=== PATIENT | male | born 2000 | race Two or more races ===

== ENCOUNTER 2023-09-15 00:06 | Emergency (ER) | payer MEDICAID ==
[~2023-09-15] VITALS: Ht 167.6 cm; Wt 113.6 kg
[2023-09-15 00:11] VITALS: TEMP 98.1
[2023-09-15] MEDS: ONDANSETRON HCL 4 MG/2 ML VIAL IVP ONE ×2 (00:43→01:56)
[2023-09-15] MEDS: KETOROLAC TROMETHAMINE 30 MG/ML VIAL IVP ONE (00:43)
[2023-09-15 00:54] LABS: BASOPHILS % (AUTO) 0.3 % (0.0-2.0); EOSINOPHILS % (AUTO) 0.5 % (1.0-6.0); HEMATOCRIT 42.6 % (41-53); HEMOGLOBIN 13.8 g/dL (13.5-17.5); LYMPHOCYTES # (AUTO) 1.1 K/uL (1.0-4.8); LYMPHOCYTES % (AUTO) 7.3 % (22.0-44.0); MEAN CORPUSCULAR HEMOGLOBIN 28.1 pg (26.0-34.0); MEAN CORPUSCULAR HGB CONC 32.4 G/dL (31.0-37.0); MEAN CORPUSCULAR VOLUME 87 fL (80-100); MONOCYTES # (AUTO) 0.5 K/uL (0.1-1.0); MONOCYTES % (AUTO) 3.1 % (2.0-9.0); NEUTROPHILS # (AUTO) 13.3 K/uL (1.8-7.7); PLATELET COUNT (AUTO) 335 K/uL (150-450); RED BLOOD CELL COUNT(AUTO) 4.92 MIL/uL (4.50-5.90)
[2023-09-15 00:55] LABS: NEUTROPHILS % (AUTO) 88.8 % (40.0-70.0)
[2023-09-15 01:04] LABS: ANION GAP 6 mmol/L (8-16); CALCIUM, TOTAL 8.9 mg/dL (8.8-10.5); CARBON DIOXIDE 28 mmol/L (22-29); CHLORIDE 104 mmol/L (98-107); CREATININE 1.18 mg/dL (0.60-1.30); GLOMERULAR FILTR. RATE CALC > 60 mL/min (>60); GLUCOSE,RANDOM 123 mg/dL (70-110); POTASSIUM 3.6 mmol/L (3.5-5.1); SODIUM SERUM 138 mmol/L (136-145); UREA NITROGEN, BLOOD 10 mg/dL (7-18)
[2023-09-15] MEDS: HYDROmorphone HCL 2 MG/ML SYRINGE IVP ONE (01:55)
[2023-09-15] MEDS: SODIUM CHLORIDE 0.9% 1,000 ML IV ONE (01:56)
[2023-09-15 02:01] LABS: APPEARANCE,URINE CLEAR (CLEAR); BILIRUBIN,URINE NEGATIVE (NEGATIVE); COLOR,URINE YELLOW (YELLOW); GLUCOSE, URINE (UA) NEGATIVE (NEGATIVE); KETONES,URINE NEGATIVE (NEGATIVE); LEUKOCYTE ESTERASE ,URINE NEGATIVE (NEGATIVE); NITRATE,URINE NEGATIVE (NEGATIVE); OCCULT BLOOD,URINE NEGATIVE (NEGATIVE); PROTEIN,URINE 30-70 mg/dL (NEGATIVE); UROBILINOGEN,URINE <=1.0 mg/dL (<=1.0)
[2023-09-15 02:16] LABS: BACTERIA,URINE None Seen /HPF (None Seen); RBC,URINE None Seen /HPF (0-2); SQUAMOUS EPITHELIAL CELL,UR Few /LPF (None Seen); WBC,URINE None Seen /HPF (0-5)
[2023-09-15] MEDS ORDERED: IBUP-1554 PO (05:43)
[2023-09-15] MEDS ORDERED: HYDR-4062 PO (05:44)
[2023-09-15] MEDS ORDERED: TAMS0.4C94 PO (05:44)
[2023-09-15] MEDS ORDERED: ONDA-104 PO (05:44)
[2023-09-15] MEDS: IBUPROFEN 600 MG TABLET PO ONE (06:01)
[2023-09-15] MEDS: HYDROCODONE/ACETAMINOPHEN 5-325 MG TABLET PO ONE (06:01)
[2023-09-15] MEDS: ONDANSETRON HCL 4 MG TABLET PO ONE (06:01)
[2023-09-15] MEDS: TAMSULOSIN HCL 0.4 MG CAPSULE PO ONE (06:01)
[2023-09-15 06:05] VITALS: BP 133/83; PULSE 74; RESP 16
== END 2023-09-15 06:09 | disposition home or self-care (01) ==
LOC: EMS 00:08
DX: N20.9 Urinary calculus, unspecified (principal)
CPT/HCPCS: 99285; 74176; 96374; 96375; 96361; 80048; 81001; 85025; 36415; 96376; J1170; J1885; J2405; Q0162; J7030